=== PATIENT | female | born 1945 | race Caucasian/White ===

== ENCOUNTER 2021-11-08 14:02 | Observation (INO) | payer MEDICARE, OTHER ==
[~2021-11-08] VITALS: Ht 160 cm; Wt 79.8 kg
[2021-11-08 15:35] VITALS: BP 170/72
[2021-11-08 15:38] VITALS: BP 167/76
[2021-11-08 15:45] VITALS: BP 150/70
[2021-11-08] MEDS ORDERED: ONDANSETRON 4 MG/2 ML (SDV) Z0FRAN IV PRN (15:45)
[2021-11-08] MEDS ORDERED: polyethylene glycoL POWDER 17 GM (MIRALAX) PACK PO PRN (15:45)
[2021-11-08] MEDS ORDERED: ACETAMINOPHEN 325 MG TABLET PO PRN (15:45)
[2021-11-08] MEDS ORDERED: PATIENT MAY USE OWN MEDS, ALL PO SCH (15:45)
[2021-11-08] MEDS ORDERED: ANTACID SUSP 30 ML UDC (MYLANTA) PO PRN (15:45)
[2021-11-08] MEDS ORDERED: diphenhydrAMINE 25 MG TAB (BENADRYL) PO PRN (15:45)
[2021-11-08] MEDS ORDERED: ONDANSETRON 4 MG (ZOFRAN) ORAL DISSOLVE TAB PO PRN (15:45)
[2021-11-08] MEDS ORDERED: MELATONIN 3 MG TABLET PO PRN (15:45)
[2021-11-08 16:20] LABS: POTASSIUM 4.1 MMOL/L (3.6-5.0)
[2021-11-08 16:21] LABS: CALCIUM 9.1 MG/DL (8.5-10.1)
[2021-11-08 16:25] LABS: CREATININE SERUM 0.86 MG/DL (0.60-1.30)
[2021-11-08] MEDS ORDERED: HYDR12.56 PO (18:28)
[2021-11-08] MEDS ORDERED: ESTR10TA9 VG (18:28)
[2021-11-08] MEDS ORDERED: FLUT1BLS IH (18:28)
[2021-11-08] MEDS ORDERED: LOSA100T57 PO (18:28)
[2021-11-08 20:00] VITALS: BP 145/53
[2021-11-08] MEDS: ENOXAPARIN 80 MG/0.8 ML (LOVENOX) SYR SC SCH (20:15)
[2021-11-09] VITALS (27 sets, daily range): BP systolic 138–208; BP diastolic 51–111
[2021-11-09 05:42] LABS: POTASSIUM 4.1 MMOL/L (3.6-5.0)
[2021-11-09 05:43] LABS: CALCIUM 8.9 MG/DL (8.5-10.1)
[2021-11-09 05:47] LABS: CREATININE SERUM 0.9 MG/DL (0.60-1.30)
[2021-11-09 05:50] LABS: MAGNESIUM 1.9 MG/DL (1.6-2.4)
[2021-11-09] MEDS: MAGNESIUM 1 GM/100 ML IVPB 100 ML IV SCH (06:24)
[2021-11-09] MEDS: KCL 20 MEQ TAB (K-DUR) PO SCH (06:24)
[2021-11-09] MEDS: POTASSIUM CL 10MEQ/50ML IVPB 50 ML IV SCH (06:24)
[2021-11-09] MEDS ORDERED: CATHETER FLUSH 10 ML SYR IV PRN (06:30)
[2021-11-09] MEDS ORDERED: NS IV 1000 ML 1,000 ML IV ONE (06:30)
[2021-11-09] MEDS: ROSUVASTATIN 20 MG (CRESTOR) TABLET PO SCH ×2 (06:52→20:22)
[2021-11-09 06:57] LABS: BASOPHILS % (AUTO) 0 % (0-10); EOSINOPHILS # (AUTO) 0.1 10^3/uL (0.0-0.3); EOSINOPHILS % (AUTO) 1 % (0-10); HEMATOCRIT 43 % (35-52); HEMOGLOBIN 13.8 g/dL (11.5-16.0); LYMPHOCYTES # (AUTO) 1.5 10^3/uL (1.0-4.0); LYMPHOCYTES % (AUTO) 23 % (12-44); MEAN CORPUSCULAR HEMOGLOBIN 31 pg (25-34); MEAN CORPUSCULAR HGB CONC 32 g/dL (32-36); MEAN CORPUSCULAR VOLUME 96 fL (80-99); MEAN PLATELET VOLUME 9.8 fL (9.0-12.2); MONOCYTES # (AUTO) 0.5 10^3/uL (0.0-1.0); MONOCYTES % (AUTO) 8 % (0-12); NEUTROPHILS # (AUTO) 4.5 10^3/uL (1.8-7.8); NEUTROPHILS % (AUTO) 67 % (42-75); PLATELET COUNT 263 10^3/uL (130-400); WHITE BLOOD COUNT 6.7 10^3/uL (4.3-11.0)
[2021-11-09] MEDS ORDERED: methylPREDNISolone 125 MG (Solu-MEDROL) VIAL ONE ×2 (07:43→10:15)
[2021-11-09] MEDS ORDERED: methylPREDNISolone 125 MG (Solu-MEDROL) VIAL IVP ONE (07:55)
[2021-11-09] MEDS ORDERED: methylPREDNISolone 125 MG (Solu-MEDROL) VIAL IV ONE (08:00)
--- NOTE | 2021-11-09 09:05 | Consultation-Cardiology ---
HPI-Cardiology Cardiology Consultation: Date of Consultation 11/09/21 Date of Admission 11/08/21 Attending Physician Angelina Howard MD Admitting Physician No,Local Physician Consulting Physician KAMILLE MEADE JR, MD HPI: Time Seen by a Provider: 09:01 Chief Complaint: Reason for consultation: Non-ST elevation myocardial infarction. I had the pleasure of seeing Megan on the cardiac stepdown unit at [facility] in [place], [place] this morning. She has no known history of coronary artery disease. Yesterday she was washing her car before she went to a [place] and noticed that she was very fatigued and both arms were very tired. She did not think much of it. She then drove to the casino and along the way, developed some epigastric and chest discomfort. She felt a little bit dizzy and short of breath. She took 1 Tums and then the symptoms resolved. She arrived at the casino and went inside but again experienced nausea and just general malaise. She told her that they needed to go back home. While he was driving home and they were passing through [place], she became more dizzy. She then developed substernal chest discomfort with radiation to her back. She told her to stop at [facility] because she did not think she could make it home. The next thing she can remember is waking up in the parking lot and staff members from the hospital were helping her into a wheelchair and brought her into the emergency room. In the emergency room she was treated with aspirin. Her electrocardiogram did not show any signs of a STEMI. She was then transferred to our hospital for further evaluation. Overnight, she has not had any further chest discomfort. However, her troponin levels have become gradually elevated. She denies paroxysmal nocturnal dyspnea or orthopnea. She gets occasional palpitations with the sensation of a fluttering in her chest. She will cough and this will resolve. This is a chronic issue and unchanged. She denies any lower extremity edema. Certain portions of this document may have been dictated utilizing voice recognition technology. Inherent to this technology, typographical and grammatical errors may exist. As much as I am diligent to identify and correct these mistakes, some errors may remain in the document. Review of Systems-Cardiology Review of Systems Other comments Review of 10 organ systems is as per the history of present illness, otherwise negative. [id number] Hx Patient Social History Marrital Status: Smoking Status: Former Smoker Alcohol Use?: Yes Pt feels they are or have been: No Past Medical History PMH As described under Assessment. Family Medical History Family Medical History: Her mother of a myocardial infarction in her 40s and she has 1 brother who also had a myocardial infarction in his 40s. Allergies and Home Medications Allergies Coded Allergies: Penicillins (Verified Allergy, Unknown, 11/08/21) Sulfa (Sulfonamide Antibiotics) (Verified Allergy, Unknown, 11/08/21) azithromycin (Verified Allergy, Unknown, 11/08/21) prednisone (Verified Allergy, Unknown, 11/08/21) pseudoephedrine (Verified Allergy, Unknown, 11/08/21) Uncoded Allergies: dye (Allergy, Unknown, 11/08/21) Patient Home Medication List Home Medication List Reviewed: Yes Estradiol (Estradiol) 10 Mcg Tablet, 750 MCG VG DAILY, (Reported) Entered as Reported by: KRISTOPEHR WATERS on 11/08/211827 Last Action: New Order Fluticasone/Vilanterol (Breo Ellipta 200-25 Mcg INH) 1 Each Blst.w.dev, 1 EACH IH DAILY, (Reported) Entered as Reported by: KRISTOPHER WATERS on 11/08/211827 Last Action: New Order Hydrochlorothiazide (Hydrochlorothiazide) 12.5 Mg Tablet, 12.5 MG PO DAILY, (Reported) Entered as Reported by: KRISTOPHER WATERS on 11/08/211827 Last Action: New Order Losartan Potassium (Losartan Potassium) 100 Mg Tablet, 100 MG PO DAILY, (Reported) Entered as Reported by: KRISTOPHER WATERS on 11/08/211827 Last Action: New Order Exam Vital Signs Vital Signs Date Time Temp Pulse Resp B/P (MAP) Pulse Ox O2 Delivery O2 Flow Rate FiO2 11/09/21 07:41 36.3 80 16 145/68 (93) 95 Room Air Physical Exam General: Alert. No acute distress. Well nourished and appears stated age. She is obese. Eye: Extraocular movements are intact. Conjunctivae are clear. There are no xanthelasma. HENT: Normocephalic. Atraumatic. Carotid pulsations 2/2 without bruits. Neck: Jugular venous pressure does not appear elevated. No thyromegaly appreciated. Respiratory: Lungs are clear to auscultation. Respirations are non-labored. Breath sounds are equal. Symmetrical chest wall expansion. Cardiovascular: Normal rate. Regular rhythm. No murmur. No gallop. Point of maximal impulse is not appear displaced. Good pulses equal in all extremities. No edema. Gastrointestinal: Soft. Normal bowel sounds. Skin: Skin turgor is normal. There is no pallor. Musculoskeletal: No kyphosis or scoliosis appreciated. Neurologic: Alert and oriented to person, place, time. Cranial nerves 3-12 appear grossly intact. The patient has good motor tone strength in the upper and lower extremities bilaterally. Psychiatric: Cooperative. Appropriate mood & affect. Labs Laboratory Tests Test 11/08/21 16:06 11/08/21 21:50 11/09/21 05:07 11/09/21 06:42 Range/Units Sodium Level 136 135 135-145 MMOL/L Potassium Level 4.1 4.1 3.6-5.0 MMOL/L Chloride Level 100 102 98-107 MMOL/L Carbon Dioxide Level 20 L 20 L 21-32 MMOL/L Anion Gap 16 H 13 5-14 MMOL/L Blood Urea Nitrogen 20 H 19 H 7-18 MG/DL Creatinine 0.86 0.90 0.60-1.30 MG/DL Estimat Glomerular Filtration Rate 70 66 BUN/Creatinine Ratio 23 21 Glucose Level 97 90 70-105 MG/DL Calcium Level 9.1 8.9 8.5-10.1 MG/DL Troponin I 0.185 H 1.666 *H 4.209 *H <0.028 NG/ML Magnesium Level 1.9 1.6-2.4 MG/DL Triglycerides Level 94 <150 MG/DL Cholesterol Level 185 < 200 MG/DL LDL Cholesterol Direct 96 1-129 MG/DL VLDL Cholesterol 19 5-40 MG/DL HDL Cholesterol 72 H 40-60 MG/DL White Blood Count 6.7 4.3-11.0 10^3/uL Red Blood Count 4.43 3.80-5.11 10^6/uL Hemoglobin 13.8 11.5-16.0 g/dL Hematocrit 43 35-52 % Mean Corpuscular Volume 96 80-99 fL Mean Corpuscular Hemoglobin 31 25-34 pg Mean Corpuscular Hemoglobin Concent 32 32-36 g/dL Red Cell Distribution Width 12.7 10.0-14.5 % Platelet Count 263 130-400 10^3/uL Mean Platelet Volume 9.8 9.0-12.2 fL Immature Granulocyte % (Auto) 0 % Neutrophils (%) (Auto) 67 42-75 % Lymphocytes (%) (Auto) 23 12-44 % Monocytes (%) (Auto) 8 0-12 % Eosinophils (%) (Auto) 1 0-10 % Basophils (%) (Auto) 0 0-10 % Neutrophils # (Auto) 4.5 1.8-7.8 10^3/uL Lymphocytes # (Auto) 1.5 1.0-4.0 10^3/uL Monocytes # (Auto) 0.5 0.0-1.0 10^3/uL Eosinophils # (Auto) 0.1 0.0-0.3 10^3/uL Basophils # (Auto) 0.0 0.0-0.1 10^3/uL Immature Granulocyte # (Auto) 0.0 0.0-0.1 10^3/uL ECG Impression ECG Comment Electrocardiogram from 11/08 showed sinus rhythm with borderline inferior ST elevation, not a STEMI. Electrocardiogram from this morning shows sinus rhythm with poor R wave progression and nonspecific T wave changes. Diagnosis/Problems Diagnosis/Problems (1) Non-ST elevation myocardial infarction (NSTEMI), initial care episode Assessment & Plan: She appears to be suffering a non-ST elevation myocardial infarction. Her electrocardiogram does not show a STEMI but does have some inferior ST changes and I suspect the right coronary artery may be the culprit vessel. She has been treated with aspirin and enoxaparin. I also gave her 1 dose of rosuvastatin. I have recommended further evaluation with a cardiac catheterization. I have explained the benefits and risks of the procedure to the patient and she is in agreement to proceed. I will also obtain an echocardiogram. (2) Primary hypertension Assessment & Plan: I started her on carvedilol in light of the myocardial infarction. We will see how her blood pressure response to this and then decide whether or not to resume her outpatient dose of lisinopril. I would hold off on restarting hydrochlorothiazide at this time. (3) Current use of estrogen therapy Assessment & Plan: She has been on estrogen replacement therapy ever since she had a hysterectomy. This can increase the risk of both arterial and venous thrombotic events. Now she appears to be suffering an acute myocardial infarction. I told her she needs to permanently discontinue estrogen. (4) Chronic obstructive pulmonary disease Assessment & Plan: Her will bring her inhaler and this can be resumed. (5) Obesity Assessment & Plan: She needs to work on weight loss. KAMILLE MEADE JR, MD Nov 09, 2021 09:05
--- NOTE | 2021-11-09 09:12 | Pre-Op Note & Conscious Sedat ---
Pre-Operative Progress Note H&P Reviewed The H&P was reviewed, patient examined and no changes noted. Date H&P Reviewed: Nov 09, 2021 Time H&P Reviewed: 09:11 Pre-Op Diagnosis: NSTEMI Conscious Sedation Pre-Proced ASA Score 2 For ASA 3 and 4: Consider anesthesia and medical clearance. Also, for patients with a history of failed moderate sedation consider anesthesia. Airway Lungs Heart ASA score ASA 1: a normal healthy patient ASA 2: a patient with a mild systemic disease (mid diabetes, controlled hypertension, obesity ASA 3: a patient with a severe systemic disease that limits activity (angina, COPD, prior Myocardial infarction) ASA 4: a patient with an incapacitating disease that is a constant threat to life (CHF, renal failure) ASA 5: a moribund patient not expected to survive 24 hrs. (ruptured aneurysm) ASA 6: a declared brain- patient whose organs are being harvested. For emergent operations, add the letter E after the classification Mallampati Classification Grade 2 Sedation Plan Analgesia, Amnesia, Plan communicated to team members, Discussed options with patient/fam, Discussed risks with patient/fam The patient is an appropriate candidate to undergo the planned procedure, sedation, and anesthesia. The patient immediately re-assessed prior to indication. KAMILLE MEADE JR, MD Nov 09, 2021 09:11
[2021-11-09] MEDS: ASPIRIN E.C. 81 MG (ECOTRIN) TAB PO SCH (09:21)
[2021-11-09] MEDS: ENOXAPARIN 80 MG/0.8 ML (LOVENOX) SYR SC SCH ×2 (09:21→20:22)
--- NOTE | 2021-11-09 09:37 | Diagnostic Imaging Report ---
EXAMINATION: CHEST (PA AND LATERAL). CLINICAL INDICATION: 76-year-old female, preoperative exam. COMPARISON: None. FINDINGS: Heart size and mediastinal contours are unremarkable. There is no identified pneumothorax. There is no pleural effusion. There is no identified focal airspace consolidation. There is flattening of the hemidiaphragms. There is a sclerotic lesion in the left proximal humeral metaphysis measuring 1.3 cm in size. IMPRESSION: 1. Findings suggesting chronic obstructive pulmonary disease without identified acute cardiopulmonary abnormality. 2. 1.3 cm sclerotic lesion in the left proximal humeral metaphysis which may reflect an enchondroma. Recommend correlation with earlier imaging to evaluate for possible stability. Dictated by: Dictated on workstation # [id number]
[2021-11-09] MEDS ORDERED: HEParin (CATH LAB) 2,000 ML IV ONE (10:02)
[2021-11-09] MEDS ORDERED: VERAPAMIL 5 MG/2 ML (CALAN) VIAL IV ONE (10:02)
[2021-11-09] MEDS ORDERED: HEParin 1000 UNIT/ML (10ML VIAL) FOR BOLUS ONE (10:02)
[2021-11-09] MEDS ORDERED: fentaNYL INJ 100 MCG/2 ML AMP ONE (10:02)
[2021-11-09] MEDS ORDERED: MIDAZOLAM 5 MG/5 ML (VERSED) VIAL ONE (10:02)
[2021-11-09] MEDS ORDERED: NS IV 1000 ML 1,000 ML ONE (10:02)
[2021-11-09] MEDS ORDERED: LIDOCAINE 2% 20 ML (XYLOCAINE) VIAL ONE (10:02)
[2021-11-09] MEDS ORDERED: NITRO DRIP 25000 MCG/D5W 250 ML IV ONE (10:03)
[2021-11-09] MEDS ORDERED: diphenhydrAMINE 50 MG/ML INJ (BENADRYL) ONE (10:15)
[2021-11-09] MEDS ORDERED: NS IV 1000 ML 1,000 ML IV SCH (11:30)
--- NOTE | 2021-11-09 11:35 | Cardiac Cath Report ---
CARDIAC CATHETERIZATION DATE OF PROCEDURE: 11/09/2021 INDICATION: Non-ST elevation myocardial infarction. HISTORY: The patient is a 76 year old female with no previously known history of coronary artery disease. She presented to an outside hospital with several hours of intermittent chest discomfort. She was then transferred to our hospital for further treatment and evaluation. She was treated with aspirin, therapeutic dose enoxaparin and topical nitrates. Her chest discomfort resolved. However, overnight her troponin levels have gradually come more and more elevated. As such, she is now referred for further evaluation with a cardiac catheterization. PROCEDURES PERFORMED: 1. Left heart catheterization with hemodynamic measurements. 2. Diagnostic chipewwa coronary angiography. PROCEDURE DESCRIPTION: After informed consent and in the fasting state, left heart catheterization was performed through the right radial artery utilizing a 6 Nigerien system by percutaneous approach. A 5 Nigerien JR4 catheter was utilized to interrogate the left ventricle and right coronary artery and a 5 Nigerien JL 3.5 catheter was utilized to interrogate the left coronary artery. Were utilized for the diagnostic portion of the procedure. All catheters were exchanged over a guidewire. Following the procedure, a vascular band was applied to the radial artery access site and the sheath was removed with good hemostasis. RESULTS: HEMODYNAMICS: The aortic pressure was 100/60 mmHg. The left ventricular press ure was 118/0 mmHg with a left ventricular end-diastolic pressure of 10 mmHg. There was no significant pressure gradient upon pullback across aortic valve. CORONARY ANGIOGRAPHY: The coronary arteries were heavily calcified. Left main coronary artery: Short and free of significant disease. Left anterior descending coronary artery: There was a complex bifurcation lesion in the mid segment with a 70% stenosis in the left anterior descending coronary artery and an 80% stenosis in a moderate sized first diagonal branch with PUSHPA-2 flow. This had a Ta classification of 1, 0, 1. Left circumflex coronary artery: There was an eccentric 80% stenosis in the proximal segment followed by a 70% stenosis in a large bifurcating first obtuse marginal branch with PUSHPA-3 flow. Right coronary artery: Dominant with a high anterior takeoff and a nicolas's crook configuration. There was a 60% stenosis proximally followed by a 90% stenosis in the mid segment just distal to the takeoff of the right ventricular branch with PUSHPA-2 flow. The posterior descending and posterolateral branches were small and diffusely diseased but with no significant focal stenoses. IMPRESSION: 1. Normal left heart pressures. 2. Severe, calcific three-vessel coronary artery disease as outlined above. The left main coronary artery is relatively spared. 3. The patient has normal left ventricular systolic function with an estimated ejection fraction of 60-65% by echocardiogram performed earlier today. 4. The patient will likely need transfer to a tertiary care facility for consideration of coronary artery bypass surgery. Certain portions of this document may have been dictated utilizing voice recognition technology. Inherent to this technology, typographical and grammatical errors may exist. As much as I am diligent to identify and correct these mistakes, some errors may remain in the document. KAMILLE MEADE JR, MD Nov 09, 2021 11:35
--- NOTE | 2021-11-09 16:29 | History & Physical-Hospitalist ---
History of Present Illness HPI/Chief Complaint Megan Grewal is a 76 year old female with PMH HTN, COPD, obesity, who presented with chest pain. She was having epigastric and chest discomfort yesterday. She also reports lightheadedness and dizziness with possible syncopal episode. She deenies fevers and chills. She denies shortness of breath and cough. She denies nausea and vomiting. She reports having occasional heartburn and acid reflux symptoms. She has never had coronary artery disease or a heart attack before. She reports having mitral valve prolapse. She is not from the area and was just driving through when her symptoms developed and worsened they subsequently stopped at [facility] and this is when she was transferred for cardiology evaluation. Her troponin was within normal limits at that time but has trended up significantly overnight. Upon my exam, she has just returned from a left heart catheterization where she was found to have multivessel CAD. She is requesting to be transferred to [place], closer to their home, for CABG evaluation. Source: patient Exam Limitations: no limitations Date Seen 11/09/21 Time Seen by a Provider: 12:30 Attending Physician Angelina Mcgee MD PCP No,Local Physician Referring Physician Date of Admission Nov 08, 2021 at 15:25 Home Medications & Allergies Home Medications Reviewed patient Home Medication Reconciliation performed by pharmacy medication reconciliations formula technician and/or nursing. Patients Allergies have been reviewed. Allergies Allergies Coded Allergies Penicillins (Verified Allergy, Unknown, 11/08/21) Sulfa (Sulfonamide Antibiotics) (Verified Allergy, Unknown, 11/08/21) azithromycin (Verified Allergy, Unknown, 11/08/21) prednisone (Verified Allergy, Unknown, 11/08/21) pseudoephedrine (Verified Allergy, Unknown, 11/08/21) Uncoded Allergies dye ( Allergy, Unknown, 11/08/21) Past Lzfvrxt-Eauvek-Exalda Hx Patient Social History Marrital Status: Tobacco Use?: No Smoking Status: Former Smoker Smokeless Tobacco Frequency: Never a User Use of E-Cig and/or Vaping dev: No Substance use?: No Alcohol Use?: Yes Alcohol Frequency: Rarely Pt feels they are or have been: No Immunizations Up To Date First/Initial COVID19 Vaccinat: 09/20/20 Second COVID19 Vaccination Ronen: 10/18/20 Tetanus Booster (TDap): Unknown Hepatitis A: No Hepatitis B: No Current Status status: No status: No Advance Directives: No Communicates: Verbally Primary Language: Citizen [place] Preferred Spoken Language: Citizen [place] Is interpretation needed?: No Implanted or Applied Medical D: None Past Medical History Hypertension Family Medical History No Pertinent Family Hx Review of Systems Constitutional: dizziness, weakness EENTM: no symptoms reported Respiratory: no symptoms reported Cardiovascular: chest pain Gastrointestinal: heartburn Genitourinary: no symptoms reported Musculoskeletal: no symptoms reported Skin: no symptoms reported Psychiatric/Neurological: No Symptoms Reported Physical Exam Physical Exam Vital Signs Vital Signs - First Documented 11/08/21 15:35 Temp 36.3 Pulse 69 Resp 22 B/P (MAP) 170/72 (109) Pulse Ox 97 O2 Delivery Room Air Capillary Refill : Height, Weight, BMI Height: '" Weight: lbs. oz. kg; 31.09 BMI Method: General Appearance: No Apparent Distress, Obese HEENT: PERRL/EOMI, Pharynx Normal Neck: Normal Inspection, Supple Respiratory: Lungs Clear, Normal Breath Sounds, No Respiratory Distress Cardiovascular: Regular Rate, Rhythm, No Edema, No Murmur Gastrointestinal: Normal Bowel Sounds, Non Tender, Soft Extremity: Normal Inspection, Non Tender, No Pedal Edema Neurologic/Psychiatric: Alert, Oriented x3, No Motor/Sensory Deficits, Normal Mood/Affect Skin: Normal Color, Warm/Dry Results Results/Procedures Labs Laboratory Tests 11/08/21 16:06 11/09/21 05:07 11/09/21 06:42 Patient resulted labs reviewed. Imaging: Reviewed Imaging Report Assessment/Plan Admission Diagnosis Chest pain Admission Status: Observation Assessment and Plan Chest pain NSTEMI Multi-vessel coronary artery disease Cardiology following Aspirin Coreg Crestor Lovenox Troponin trended up Left heart cath with multivessel CAD Cardioloy attempting transfer to [place] for CABG evaluation Estrogen use Cardiology recommends discontinuation Lesion of left humerus Likely enchondroma Recommend PCP correlation with previous xrays COPD Obesity Clinically significant, no acute management needs Diagnosis/Problems Diagnosis/Problems (1) Multiple vessel coronary artery disease Status: Acute (2) NSTEMI (non-ST elevation myocardial infarction) Status: Acute (3) HTN (hypertension) Status: Chronic (4) Dyslipidemia Status: Chronic (5) COPD (chronic obstructive pulmonary disease) Status: Chronic (6) Obesity (BMI 30.0-34.9) Status: Chronic (7) Lesion of left humerus Status: Acute ANGELINA MCGEE MD Nov 09, 2021 16:29
[2021-11-10] VITALS (10 sets, daily range): BP systolic 119–179; BP diastolic 57–104
[2021-11-10 06:00] LABS: POTASSIUM 3.9 MMOL/L (3.6-5.0)
[2021-11-10 06:01] LABS: CALCIUM 8.9 MG/DL (8.5-10.1)
[2021-11-10] MEDS: KCL 20 MEQ TAB (K-DUR) PO SCH (06:03)
[2021-11-10] MEDS: POTASSIUM CL 10MEQ/50ML IVPB 50 ML IV SCH (06:03)
[2021-11-10 06:06] LABS: CREATININE SERUM 0.86 MG/DL (0.60-1.30)
[2021-11-10 06:08] LABS: MAGNESIUM 1.9 MG/DL (1.6-2.4)
[2021-11-10] MEDS: MAGNESIUM 1 GM/100 ML IVPB 100 ML IV SCH (06:15)
[2021-11-10] MEDS: ASPIRIN E.C. 81 MG (ECOTRIN) TAB PO SCH (08:39)
[2021-11-10] MEDS: ENOXAPARIN 80 MG/0.8 ML (LOVENOX) SYR SC SCH (08:40)
--- NOTE | 2021-11-10 08:53 | Discharge Summary ---
Diagnosis/Chief Complaint Date of Admission Nov 08, 2021 at 15:25 Date of Discharge Discharge Date: Nov 10, 2021 Admission Diagnosis Chest pain Primary Care No,Local Physician Discharge Diagnosis (1) Multiple vessel coronary artery disease Status: Acute (2) NSTEMI (non-ST elevation myocardial infarction) Status: Acute (3) HTN (hypertension) Status: Chronic (4) Dyslipidemia Status: Chronic (5) COPD (chronic obstructive pulmonary disease) Status: Chronic (6) Obesity (BMI 30.0-34.9) Status: Chronic (7) Lesion of left humerus Status: Acute Discharge Summary Procedures/Consulations Cardiology- Dr Eduardo Discharge Physical Exam Allergies: Coded Allergies: Penicillins (Verified Allergy, Unknown, 11/08/21) Sulfa (Sulfonamide Antibiotics) (Verified Allergy, Unknown, 11/08/21) azithromycin (Verified Allergy, Unknown, 11/08/21) chlorpheniramine (Unverified Allergy, Unknown, 11/10/21) codeine (Unverified Allergy, Unknown, Hives, 11/10/21) iodine (Unverified Allergy, Unknown, 11/10/21) phenylephrine (Unverified Allergy, Unknown, 11/10/21) prednisone (Verified Allergy, Unknown, 11/08/21) pseudoephedrine (Verified Allergy, Unknown, 11/08/21) triprolidine (Unverified Allergy, Unknown, 11/10/21) ciprofloxacin (Unverified Adverse Reaction, Unknown, Nausea, 11/10/21) UNCONSCIOUSNESS erythromycin base (Unverified Adverse Reaction, Unknown, Vomiting, 11/10/21) Uncoded Allergies: dye (Allergy, Unknown, 11/08/21) Vitals & I&Os Vital Signs Date Time Temp Pulse Resp B/P (MAP) Pulse Ox O2 Delivery O2 Flow Rate FiO2 11/10/21 08:00 74 14 121/76 (91) 92 Room Air 11/10/21 07:44 36.4 General Appearance: No Apparent Distress, WD/WN Cardiovascular: Regular Rate, Rhythm, No Murmur Neurologic/Psychiatric: Alert, Oriented x3 Hospital Course Patient was admitted to the hospital from [facility] ER due to chest pain. She originally had a negative troponin that trended up and she was taken for cardiac cath which revealed multivessel disease. She was transferred to [facility] for cardiothoracic evaluation for possible bypass. Labs (last 24 hrs) Laboratory Tests 11/10/21 05:11: Sodium Level 136, Potassium Level 3.9, Chloride Level 105, Carbon Dioxide Level 18L, Anion Gap 13, Blood Urea Nitrogen 20H, Creatinine 0.86, Estimat Glomerular Filtration Rate 70, BUN/Creatinine Ratio 23, Glucose Level 122H, Calcium Level 8.9, Magnesium Level 1.9 Patient resulted labs reviewed. Pending Labs Laboratory Tests 11/10/21 05:11: Sodium Level 136, Potassium Level 3.9, Chloride Level 105, Carbon Dioxide Level 18, Anion Gap 13, Blood Urea Nitrogen 20, Creatinine 0.86, Estimat Glomerular Filtration Rate 70, BUN/Creatinine Ratio 23, Glucose Level 122, Calcium Level 8.9, Magnesium Level 1.9 Imaging: Reviewed Imaging Report Discussion & Recommendations Discharge Planning: >30 minutes discharge planning Discharge Home Medications: Active Scripts Active Reported Tylenol Extra Strength (Acetaminophen) 500 Mg Tablet 1,000 Mg PO Q8H PRN Nexium 24Hr (Esomeprazole Magnesium) 20 Mg Capsule.dr 20 Mg PO DAILY PRN Kathleen Allergy (Fexofenadine HCl) 180 Mg Tablet 180 Mg PO DAILY PRN Estradiol Tablet (Estradiol) 0.5 Mg Tablet 0.75 Mg PO DAILY TAKES 1 & (0.5MG) TABS Breo Ellipta 200-25 Mcg INH (Fluticasone/Vilanterol) 1 Each Blst.w.dev 1 Each IH DAILY Hydrochlorothiazide 12.5 Mg Tablet 12.5 Mg PO DAILY Losartan Potassium 100 Mg Tablet 100 Mg PO DAILY Instructions to patient/family Please see electronic discharge instructions given to patient. JOHN BETTS MD Nov 10, 2021 08:53
--- NOTE | 2021-11-10 08:57 | Cardiology Progress Note ---
Progress Note-Cardiology Events since last exam Date Seen by Provider: Nov 10, 2021 Time Seen by Provider: 08:51 Events since last exam I am following her due to a non-STEMI. She denies any further chest discomfort. She denies dyspnea, palpitations, syncope, or ankle edema. She did develop a hematoma at the right radial access site. She underwent a cardiac catheterization on 11/09 and that showed severe three-vessel coronary artery disease that spares the left main coronary artery. She has a normal ejection fraction. She wanted to be transferred to [facility] in [place] but they do not have a bed. We were able to find a bed at [facility] in [place], [place]. Certain portions of this document may have been dictated utilizing voice recognition technology. Inherent to this technology, typographical and grammatical errors may exist. As much as I am diligent to identify and correct these mistakes, some errors may remain in the document. Vitals Last set of Vitals Signs Vital Signs 11/10/21 11/10/21 07:44 08:00 Temp 36.4 Pulse 74 Resp 14 B/P (MAP) 121/76 (91) Pulse Ox 92 O2 Delivery Room Air Labs Labs Laboratory Tests 11/10/21 05:11 Exam Vital Signs Vital Signs Date Time Temp Pulse Resp B/P (MAP) Pulse Ox O2 Delivery O2 Flow Rate FiO2 11/10/21 08:00 74 14 121/76 (91) 92 Room Air 11/10/21 07:44 36.4 Physical Exam General: Alert. No acute distress. Eye: No xanthelasma. HENT: Normocephalic. Neck: Jugular venous pressure does not appear elevated. Respiratory: Lungs are clear to auscultation. Respirations are non-labored. Breath sounds are equal. Symmetrical chest wall expansion. Cardiovascular: Normal rate. Regular rhythm. No murmur. No gallop. No edema. There is a fairly large hematoma around the right radial access site that appears stable. Her radial pulse is intact and her hand has good perfusion. Gastrointestinal: Soft. Normal bowel sounds. Skin: Warm. Dry. Neurologic: Alert and oriented to person, place, time. Cranial nerves 3-11 grossly intact. Psychiatric: Cooperative. Appropriate mood & affect. Labs Laboratory Tests Test 11/10/21 05:11 Range/Units Sodium Level 136 135-145 MMOL/L Potassium Level 3.9 3.6-5.0 MMOL/L Chloride Level 105 98-107 MMOL/L Carbon Dioxide Level 18 L 21-32 MMOL/L Anion Gap 13 5-14 MMOL/L Blood Urea Nitrogen 20 H 7-18 MG/DL Creatinine 0.86 0.60-1.30 MG/DL Estimat Glomerular Filtration Rate 70 BUN/Creatinine Ratio 23 Glucose Level 122 H 70-105 MG/DL Calcium Level 8.9 8.5-10.1 MG/DL Magnesium Level 1.9 1.6-2.4 MG/DL Diagnosis/Problems Diagnosis/Problems (1) Non-ST elevation myocardial infarction (NSTEMI), initial care episode Assessment & Plan: She had a non-ST elevation myocardial infarction. Coronary artery disease is a new finding in this patient. She has severe triple-vessel disease. She is nondiabetic and has good renal function. She would be a good candidate for surgical revascularization. She is not having any further angina. She is on aspirin, beta-emily and statin medication. We will plan on transfer likely to [facility] in [place], [place] later today for coronary artery bypass surgery. She should continue on therapeutic dosing of enoxaparin. (2) Primary hypertension Assessment & Plan: I started her on carvedilol in light of the myocardial infarction. She seems to be normotensive with just the carvedilol. She was on lisinopril at home and this could possibly be added later if needed. (3) Current use of estrogen therapy Assessment & Plan: She has been on estrogen replacement therapy ever since she had a hysterectomy and a years ago. This can increase the risk of both arterial and venous thrombotic events. Now she suffered an acute myocardial infarction. I told her she needs to permanently discontinue estrogen. The risks of ongoing estrogen therapy far outweigh any benefit. (4) Chronic obstructive pulmonary disease Assessment & Plan: Continue inhaler. (5) Obesity Assessment & Plan: She needs to work on weight loss. KAMILLE MEADE JR, MD Nov 10, 2021 08:57
[2021-11-10] MEDS ORDERED: ACET-2267 PO (09:02)
[2021-11-10] MEDS ORDERED: ESTR0.5T PO (09:02)
[2021-11-10] MEDS ORDERED: FEXO180T84 PO (09:02)
[2021-11-10] MEDS ORDERED: ESOM20CA58 PO (09:02)
== END 2021-11-10 11:37 | disposition short-term general hospital (02) ==
LOC: CSD 15:25
PROVIDERS: ADMIT Internal Medicine; ATTEND Internal Medicine
DX: I21.4 Non-ST elevation (NSTEMI) myocardial infarction (principal); I25.10 Atherosclerotic heart disease of native coronary artery without angina pectoris; I10 Essential (primary) hypertension; J44.9 Chronic obstructive pulmonary disease, unspecified; E66.9 Obesity, unspecified; I08.2 Rheumatic disorders of both aortic and tricuspid valves; M89.9 Disorder of bone, unspecified; E78.5 Hyperlipidemia, unspecified; Z79.899 Other long term (current) drug therapy; Z79.818 Long term (current) use of other agents affecting estrogen receptors and estrogen levels; Z87.891 Personal history of nicotine dependence; Z68.31 Body mass index [BMI] 31.0-31.9, adult
CPT/HCPCS: 71046; 80048 ×3; 80061; 83735 ×2; 84484 ×2; 85025; 93005 ×2; 93306; 93458; 96372; C1894; G0378; G0379; 36415